=== PATIENT | male | born 1950 | race Caucasian/White ===

== ENCOUNTER 2018-09-12 08:31 | Emergency (ER) | payer MEDICARE, BC, SELFPAY ==
[2018-09-12 08:35] VITALS: BP 146/81; PULSE 74; RESP 18; TEMP 36.5; O2SAT 97
--- NOTE | 2018-09-12 09:00 | W.ED.GENAD ---
Discharge Plan Disposition Patient Disposition: HOME Condition: Stable Discharge Details Chief Complaint: SOB Clinical Impression: Viral URI with cough, Elevated blood pressure reading Primary Care Provider: None,None ED Provider: Giovanny Condon Home Meds and New Rx's Prescriptions: New benzonatate 200 mg capsule 200 mg PO TID PRN (Reason: cough) Qty: 30 RF: 0 Continued Theraflu ExpressMax Cold Day 5-10-325 mg/15 mL Liquid 30 ml PO PRN PRNRF: 0 Prilosec OTC 20 mg Tablet,Delayed Release (Dr/Ec) 20 mg PO PRN PRNRF: 0 Discharge Instructions Instructions: Upper Respiratory Infection (ED), Acute Cough (ED) Additional Instructions: Return to the emergency department for any shortness of breath, chest pain, new or worsening symptoms, or if you have a fever and chills after 1 week of symptoms. Otherwise care management will assist you in establishing a primary care provider for reassessment of your elevated blood pressure along with any continued symptoms Referrals: Primary Care Provider [Outside] Discharge Data Discharge Date/Time-TO BE ENTERED AT DEPARTURE: 09/12/18 12:28 Medical Decision Making Patient presenting to the emergency department for chief complaint of cough. Patient states that this started 2 days ago after being around his brother who has similar symptoms. Patient denies any fever chills, shortness of breath, difficulty breathing, chest pain, nasal congestion, sore throat or other symptoms. Physical exam shows clear lung sounds, dry cough heard during examination with no productive sputum, normal cardiac exam, normal HEENT exam. Patient is mildly hypertensive but has normal pulse, not tachypneic, afebrile with appropriate O2 saturation. Given no other associated symptoms I doubt influenza, doubt pneumonia, doubt meningitis or other systemic illness. Mostly concern for viral etiology of cough and/or environmental irritant. Plan to prescribe patient Tessalon Perles as cough suppressant and have him return for any new or worsening symptoms. Patient states that he does not have a primary care provider so patient placed up on care management list for arrangement of primary care provider for reassessment of blood pressure. After discussion of diagnosis and plan of care patient has no further needs, questions, or concerns and states clear understanding to return to the emergency department for any worsening symptoms. HPI General Mode of arrival: ambulatory. Date/Time Provider Initiated Documentation: 09/12/18 08:41. Limitations to Documentation: no limitations. Information obtained by: patient and RN notes reviewed. History of Present Illness 68 year old M presents to the emergency department with the chief complaint of cough, described as similar to prior episodes, Quality is described as other (denies pain), Patient reports no radiation. Patient started experiencing this day(s) (2) and it has been constant. No relieving factors improve symptom(s), Patient notes no other symptoms.. Patient did receive the following treatments prior to arrival, none Related Data Home Medications Medication Instructions Recorded Confirmed Prilosec OTC 20 mg PO PRN PRN 09/12/18 09/12/18 Theraflu ExpressMax Cold Day 30 ml PO PRN PRN 09/12/18 09/12/18 benzonatate 200 mg PO TID PRN #30 cap 09/12/18 Previous Rx's Medication Instructions Recorded benzonatate 200 mg PO TID PRN #30 cap 09/12/18 Allergies Allergy/AdvReac Type Severity Reaction Status Date / Time No Known Allergies Allergy Unverified 09/12/18 09:28 General Stated Complaint: SOB ROBINA: 3 Review of Systems Constitutional Denies chills, Denies fever(s), Denies lethargy, Denies malaise and Denies poor appetite ENT Denies otalgia, Denies nasal congestion, Denies nasal discharge, Denies sinus pressure, Denies sore throat and Denies throat swelling Cardiovascular Denies chest pain Respiratory Denies change in phlegm color, Denies chest congestion, Reports cough, Denies pain with cough, Denies stridor and Denies wheezing Gastrointestinal Denies abdominal pain, Denies dyspepsia, Denies diarrhea, Denies nausea and Denies vomiting Integumentary/Breasts Denies rash Allergic/Immunologic Denies throat swelling and Denies wheezing [facility] Social History Smoking/Tobacco Use Status: Never Exam Const General: cooperative, comfortable and no acute distress Orientation: alert and awake [facility] Head: normal to inspection, normocephalic and atraumatic Ears: hearing grossly normal bilaterally, TM's normal bilaterally, mastoids normal and unable to visualize TM on the left (Due to cerumen) General nose exam: external nose normal Face and sinus: normal facial exam, sinuses nontender and no erythema Mouth: oral mucosae normal, no drooling, no muffled voice and no trismus Throat: posterior oropharynx normal, tonsils normal and uvula midline Neck Neck: normal visual inspection, full ROM, no lymphadenopathy, no meningeal signs, trachea midline and supple Resp Effort & Inspection: normal respiratory effort, able to speak in complete sentences and cough Quality of cough: dry Auscultation: clear to auscultation bilaterally Cardio Rate: regular rate Rhythm: regular rhythm Heart Sounds: S1 normal, S2 normal, normal S1 and S2, no click, no gallops, no murmurs and no rubs Skin General skin exam: no rashes or lesions noted and dry skin (warm) Neuro General: alert, awake, oriented x3, gait normal and moves all extremities Cognition: normal cognition Speech: speech normal Course Vital Signs Temperature 36.5 C 09/12/18 08:35 Pulse 74 09/12/18 08:35 Respiratory Rate 18 09/12/18 08:35 Blood Pressure 146/81 H 09/12/18 08:35 Pulse Oximetry 97 09/12/18 08:35 Temperature 36.5 C 09/12/18 08:35 Temperature Source Temporal Artery Scan 09/12/18 08:35 Pulse 74 09/12/18 08:35 Respiratory Rate 18 09/12/18 08:35 Respiratory Effort 09/12/18 08:41 Respiratory Depth Normal 09/12/18 08:41 Blood Pressure 146/81 H 09/12/18 08:35 Pulse Oximetry 97 09/12/18 08:35 Oxygen Delivery Method Room Air 09/12/18 08:35 Oxygen Flow Rate 0 09/12/18 08:35 Pain Level 0 09/12/18 08:35
[2018-09-12 09:26] VITALS: PULSE 87; RESP 16; O2SAT 96
--- NOTE | 2018-09-15 07:59 | PDOC.ERCMPRO ---
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 Patient needs to establish care. Referral faxed to [facility] this am.
--- NOTE | 2018-09-15 08:03 | CMPROGNOTE_ITS ---
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 Patient needs to establish care. Referral faxed to [facility] this am.
== END 2018-09-12 12:28 | disposition home or self-care (01) ==
PROVIDERS: Emergency Provider Nurse Practitioner Family
DX: B34.9 Viral infection, unspecified (principal); R05 Cough; R03.0 Elevated blood-pressure reading, without diagnosis of hypertension
CPT/HCPCS: 99283

== ENCOUNTER 2019-04-29 09:54 | Emergency (ER) | payer MEDICARE, BC, SELFPAY ==
[2019-04-29 09:55] VITALS: BP 133/82; PULSE 79; RESP 16; TEMP 36.4; O2SAT 97
--- NOTE | 2019-04-29 10:11 | ED.GENADUL_ITS ---
Discharge Plan Disposition Patient Disposition: HOME Condition: Stable Discharge Details Chief Complaint: Urinary Clinical Impression: Acute UTI Primary Care Provider: Rema Hernandez ED Provider: Will Ledezma Home Meds and New Rx's Prescriptions: New levofloxacin 750 mg tablet 750 mg PO DAILY Qty: 7 RF: 0 Continued Prilosec OTC 20 mg Tablet,Delayed Release (Dr/Ec) 20 mg PO PRN PRNRF: 0 Discharge Instructions Instructions: Urinary Tract Infection in Men (ED) Additional Instructions: if you develop severe pain, fevers, vomit return to the emergency department. Follow up with your primary care provider next month as scheduled, if this continues to be an issue with recurrent uti's you may need to see a urology Medical Decision Making 68 yo male comes in with burning with urination and frequency for a week without fevers, abdominal pain or back pain. No cva tenderness on exam and appears well on exam. Denies being sexually active and no prior hx of uti's. his symptoms do sound consistent with uti, will obtain ua and gc/chlamdyia as well UA is consistent with uti so will start abx. ADvisd f/u with pcp and return precautions given Differential Diagnosis uti, std, prostatitis Lab Data Lab results reviewed: Yes I reviewed the patient's lab results. HPI General Mode of arrival: ambulatory . Date/Time Provider Initiated Documentation: 04/29/19 09:57 . Limitations to Documentation: no limitations . Information obtained by: patient . History of Present Illness 68 year old M presents to the emergency department with the chief complaint of burning with u rination, described as moderate, Patient started experiencing this week(s) (1) and it has been constant. No relieving factors improve symptom(s), No exacerbating factors reported . Patient did receive the following treatments prior to arrival, none Related Data Home Medications Medication Instructions Recorded Confirmed Prilosec OTC 20 mg PO PRN PRN 09/12/18 04/29/19 levofloxacin 750 mg PO DAILY #7 tab 04/29/19 Previous Rx's Medication Instructions Recorded levofloxacin 750 mg PO DAILY #7 tab 04/29/19 Allergies Allergy/AdvReac Type Severity Reaction Status Date / Time No Known Allergies Allergy Unverified 04/29/19 10:00 General Stated Complaint: Urinary ROBINA: 4 Review of Systems Review of Systems All systems reviewed & are unremarkable except as noted in HPI and below Constitutional Denies chills, Denies fever(s) and Denies weakness ENT Denies change in voice Cardiovascular Denies chest pain and Denies dyspnea Respiratory Denies cough and Denies dyspnea Gastrointestinal Denies abdominal pain, Denies nausea and Denies vomiting Musculoskeletal Denies joint swelling Neurologic Denies weakness [facility] Social History Smoking/Tobacco Use Status: Never Drug use: Never Do you feel safe at home: Yes Do you feel safe in your relationship?: Yes Exam Const General: no acute distress Orientation: alert HENMT Head: normal to inspection Ears: external ears normal General nose exam: external nose normal Mouth: moist mucous membranes Eyes General: appearance normal, both eyes and all related structures Neck Neck: normal visual inspection Resp Effort & Inspection: normal respiratory effort and able to speak in complete sentences Cardio Rate: regular rate Skin General skin exam: no rashes or lesions noted Neuro General: alert and oriented x3 Extrem General: normal to inspection Psych Mental Status: mental status grossly normal Course Vital Signs Temperature 36.4 C L 04/29/19 09:55 Pulse 79 04/29/19 09:55 Respiratory Rate 16 04/29/19 09:55 Blood Pressure 133/82 04/29/19 09:55 Pulse Oximetry 97 04/29/19 09:55 Temperature 36.4 C L 04/29/19 09:55 Temperature Source Skin 04/29/19 09:55 Pulse 79 04/29/19 09:55 Respiratory Rate 16 04/29/19 09:55 Respiratory Effort Non-Labored 04/29/19 09:59 Blood Pressure 133/82 04/29/19 09:55 Blood Pressure Position Sitting 04/29/19 09:55 Pulse Oximetry 97 04/29/19 09:55 Pain Level 4 04/29/19 09:55 Lab/Test Results Lab/Test Results: 04/29/19 10:01 Urine - Not Specified Urine Culture - Pending
[2019-04-29 11:29] LABS: Bilirubin Negative (Negative); Blood Large (Negative); Clarity Cloudy (Clear); Glucose 500 mg/dL (Negative); Ketones Negative (Negative); Leukocyte Esterase Moderate (Negative); Nitrite Negative (Negative)
[2019-04-29 11:37] LABS: Bacteria Many HPF (Negative); C & S Indicated? C&S Done As Ordered; Casts Negative LPF (Negative); Crystals Negative HPF (Negative); Epithelial Cells Negative HPF (Negative); Mucus Negative (Negative); RBC Negative (0-2); WBC >50 HPF (0-5)
[2019-04-30 13:21] LABS: Chlamydia Result Negative; GC Result Negative; Specimen Description URINE
== END 2019-04-29 12:00 | disposition home or self-care (01) ==
PROVIDERS: Emergency Provider Emergency Medicine; PCP Nurse Practitioner
DX: N39.0 Urinary tract infection, site not specified (principal)
CPT/HCPCS: 87077; 87491; 87591; 99283; 81003; 81015; 87086; 87186

== ENCOUNTER 2019-06-04 09:29 | Outpatient (REF) | payer MEDICARE, BC, SELFPAY ==
[2019-06-04 19:27] LABS: ALT 17 U/L (16-63); AST 19 U/L (15-37); Albumin 3.8 g/dL (3.4-5.0); Alkaline Phosphatase 128 U/L (46-116); Anion Gap 9.2 mmol/L (3-11); BUN 15 mg/dL (7-18); Bilirubin, Total 0.8 mg/dL (0.2-1.0); CO2 26.8 mmol/L (21.0-32.0); CREATININE 1.12 mg/dL (0.70-1.30); Calculated LDL 153 mg/dL; Chloride 100 mmol/L (98-107); Cholesterol 219 mg/dL (50-200); Glucose 182 mg/dL (70-100); HDL Cholesterol 34 mg/dL (40-60); Potassium 4.6 mmol/L (3.5-5.1); Sodium 136 mmol/L (136-145); Total Protein 7.3 g/dL (6.4-8.2); Triglyceride 164 mg/dL (30-150)
== END 2019-06-04 09:49 ==
LOC: NCHCN 09:29
PROVIDERS: PCP Nurse Practitioner; Visit Provider Nurse Practitioner
DX: Z13.1 Encounter for screening for diabetes mellitus (principal); Z13.6 Encounter for screening for cardiovascular disorders; R69 Illness, unspecified
CPT/HCPCS: 80053; 80061

== ENCOUNTER 2021-10-12 18:50 | Outpatient (REF) | payer MEDICARE, BC, SELFPAY ==
[2021-10-12 14:20] LABS: Hemoglobin A1C 10.7 % (<5.7)
[2021-10-12 14:23] LABS: ALT 31 U/L (16-63); AST 22 U/L (15-37); Albumin 3.9 g/dL (3.4-5.0); Alkaline Phosphatase 156 U/L (46-116); Anion Gap 9.9 mmol/L (3-11); BUN 18 mg/dL (7-18); Bilirubin, Total 0.8 mg/dL (0.2-1.0); CO2 26.1 mmol/L (21.0-32.0); CREATININE 1.4 mg/dL (0.70-1.30); Calcium 9.2 mg/dL (8.5-10.1); Chloride 97 mmol/L (98-107); Glucose 395 mg/dL (74-106); Potassium 4.8 mmol/L (3.5-5.1); Sodium 133 mmol/L (136-145); Total Protein 7.4 g/dL (6.4-8.2)
== END 2021-10-12 18:51 | disposition home or self-care (01) ==
LOC: NCHCN 18:50
PROVIDERS: PCP Nurse Practitioner; Visit Provider Physician Assistant Medical
DX: N39.0 Urinary tract infection, site not specified (principal)
CPT/HCPCS: 80053; 83036; 87086

== ENCOUNTER 2021-10-25 13:45 | Outpatient (REF) | payer MEDICARE, BC, SELFPAY ==
[2021-10-25 14:38] LABS: Bilirubin Negative (Negative); Blood Small (Negative); Clarity Cloudy (Clear); Glucose 100 mg/dL (Negative); Ketones Negative (Negative); Leukocyte Esterase Moderate (Negative); Nitrite Negative (Negative); Urobilinogen 0.2 EU/dL (Up TO 0.2); pH 5.5 (5-8)
[2021-10-25 14:55] LABS: Bacteria Many HPF (Negative); Crystals Negative HPF (Negative); Epithelial Cells Rare HPF (Negative); Other Cells Negative (Negative); WBC >50 HPF (0-5)
[2021-10-25 14:56] LABS: C & S Indicated? C&S Done As Ordered; Casts Negative LPF (Negative); Mucus Heavy (Negative)
[2021-10-25 15:07] LABS: COMMENT (LAB VIEW ONLY) 79.09 mg/dL; Microalb ug/mg Crea 87.6 ug/mg Cr
== END 2021-10-25 13:46 | disposition home or self-care (01) ==
LOC: NCHCN 13:45
PROVIDERS: PCP Nurse Practitioner; Visit Provider Nurse Practitioner Family
DX: N39.0 Urinary tract infection, site not specified (principal); E11.9 Type 2 diabetes mellitus without complications
CPT/HCPCS: 81003; 81015; 82043; 82570; 87086

== ENCOUNTER 2021-11-21 15:04 | Emergency (ER) | payer MEDICARE, BC, SELFPAY ==
[2021-11-21] VITALS (42 sets, daily range): BP systolic 119–147; BP diastolic 54–75; PULSE 71–93; RESP 12–30; TEMP 36.8; O2SAT 90–98
--- NOTE | 2021-11-21 15:00 | RT.EKG_ITS ---
APPROVED REPORT Exam: Resting ECG Reason for Exam: pained breathing Patient Location: E HR:80 bpm ECG Measurements Heart Rate 80 AXIS ME 168 P 54 QRSd 84 QRS 49 QT 338 T 57 QTc 390 Conclusion Sinus rhythm...normal P axis, V-rate 60- 99
--- NOTE | 2021-11-21 15:30 | DI.RAD_ITS ---
Exam(s) XR PORTABLE CHEST AP EXAM: XR PORTABLE CHEST AP CLINICAL HISTORY: chest pain TECHNIQUE: 2D digital imaging was performed of the chest. One image was obtained. An AP view was ob tained. COMPARISON: No exams were available for comparison FINDINGS: MEDIASTINUM: Normal. HEART: Normal. PULMONARY VASCULATURE: Normal. LUNGS: Linear opacities are seen in the lung bases bilaterally. PLEURAL SPACE: No pleural effusion or pneumothorax. BONE:Within normal limits for the patient's age. OTHER FINDINGS:Normal. IMPRESSION: There are bilateral linear opacities present in the bases. This may represent atelectasis, scarring or pneumonia. Please correlate clinically. DATA REPOSITORY: RADIATION DOSE DELIVERED:
[2021-11-21 15:55] LABS: Abs Immature Grans 0.03 10^3/uL (0.0-0.06); Absolute Basophil Count 0.05 10^3/uL (0.0-0.2); Absolute Eosinophil Count 0.13 10^3/uL (0.0-0.7); Absolute Lymphocyte Count 2.06 10^3/uL (1.2-3.4); Absolute Monocyte Count 1.01 10^3/uL (0.1-0.8); Absolute Neutrophil Count 7.25 10^3/uL (1.2-6.7); Basophils % 0.5; Eosinophils % 1.2; HCT 45.4 % (40.0-50.0); HGB 14.9 g/dL (13.5-17.5); Immature Grans % 0.3; Lymphocytes % 19.6; MCH 30.4 pg (27.0-33.0); MCHC 32.8 % (32.0-36.0); MCV 92.7 fL (80-95); MPV 10.8 fL (8.0-11.0); Monocytes % 9.6; Neutrophils % 68.8; Nucleated RBC 0 %; Platelet Count 235 10^3/uL (130-400); RDW 12.4 % (11.8-14.1); RDW-SD 42.7 fL; WBC 10.53 10^3/uL (4.4-10.8)
[2021-11-21] MEDS: Aspirin 81 MG CHEW 324 MG CH (16:00)
[2021-11-21 16:16] LABS: ALT 25 U/L (16-63); AST 16 U/L (15-37); Albumin 3.6 g/dL (3.4-5.0); Alkaline Phosphatase 214 U/L (46-116); Anion Gap 7.8 mmol/L (3-11); BUN 18 mg/dL (7-18); Bilirubin, Total 1.1 mg/dL (0.2-1.0); CO2 27.2 mmol/L (21.0-32.0); CREATININE 1.1 mg/dL (0.70-1.30); Chloride 100 mmol/L (98-107); Glucose 132 mg/dL (74-106); INR 1.1 (0.9-1.1); Magnesium 2.1 mg/dL (1.8-2.4); NT-proBNP 76 pg/mL (<300); PTT Activated 27.8 sec (21.0-27.5); Potassium 4.2 mmol/L (3.5-5.1); Prothrombin Time 10.9 sec (9.3-11.0); Sodium 135 mmol/L (136-145); Total Protein 7.7 g/dL (6.4-8.2); Troponin I < 50 ng/L (<or=60)
--- NOTE | 2021-11-21 16:22 | ED.GENADUL_ITS ---
Discharge Plan Disposition Patient Disposition: HOME Condition: Stable Discharge Details Clinical Impression: Pneumonia, Acute UTI Primary Care Provider: RAVI REECE ED Provider: Johny Pritchard Home Meds and New Rx's Prescriptions: New levofloxacin 750 mg tablet 750 mg PO DAILY Qty: 6 0RF Continued omeprazole magnesium [Prilosec OTC] 20 mg Tablet,Delayed Release (Dr/Ec) 20 mg PO PRN PRN0RF metformin 500 mg tablet 500 mg PO BID 0RF Label Comments: TAKE ONE TABLET BY MOUTH TWICE A DAY Victoza 2-Obi 0.6 mg/0.1 mL (18 mg/3 mL) pen injector 0.6 mg SUBCUT DAILY 0RF Discharge Instructions Instructions: Urinary Tract Infection in Men (ED), Pneumonia (ED) Additional Instructions: It would appear as though you have both pneumonia and a urinary tract infection. Levaquin as directed. Plenty fluids to avoid dehydration. Stsy-psj-vpswbal medications as directed for symptom control. Please watch for new or worsening symptoms return to the ER concerns otherwise please reach out to your primary care provider tomorrow to discuss your ER visit and need for outpatient reevaluation. Discharge Data Discharge Date/Time-TO BE ENTERED AT DEPARTURE: 11/21/21 20:05 Medical Decision Making This is a 71-year-old gentleman, past medical history of GERD, diabetes, non- smoker, fully vaccinated presenting to the ER complaining of left-sided chest that has been present steadily for the past 3 days worse with movement, deep breathing, coughing, lying flat, that radiates to his left shoulder blade. Patient states it feels sharp and jabbing, superficial like it could be a muscle. He also wonders if he could have pneumonia given his cough. He denies other recent illness or trauma. He denies any cardiac or pulmonary disease hist ory. He has not taken any medications for symptoms. Patient also wonders if he could have an acute on chronic UTI as he has mild dysuria. Clinically he appears well, nontoxic, hemodynamically stable. Given his age and complaint, will initiate cardiac work-up including D-dimer to rule out potential PE, extremely low suspicion for dissection, and will obtain a Covid swab. Will give a single full dose of aspirin. Laboratory values reveal no evidence of leukocytosis, anemia, thrombocytopenia. D-dimer slightly elevated at 764, will pursue CTA of the chest sodium 135, electrolytes otherwise unremarkable, creatinine 1.0 with a GFR greater than 60. Magnesium 2.1, troponin less than 50, BNP 76. Urinalysis reveals moderate leuk esterase with greater than 50 white cells. COVID negative CTA negative for dissection or PE but concerning for bilateral lower lobe infiltrates. Patient remains hemodynamically stable. Agreeable to awaiting delta troponin. Given his UTI and pneumonia, will treat with Levaquin, first dose given now. Discussed his age, presentation, comorbidities, and admission but he declines, feels well enough to go home and assures me he will return for new or worsening symptoms. Delta troponin remains less than 50 Patient remains hemodynamically stable. Reports feeling well enough to go home and is requesting discharge. Standard discharge and return precautions were provided. This documentation was generated using [employer] system, please disregard any oddities of phrase or misspellings. Medical Records Medical records reviewed: Yes I reviewed the patient's medical records. Imaging Data Radiologic Study: Attestation: I personally reviewed and interpreted this imaging study as follows: Imaging: CT Scan Radiologist's impression: Exam(s) CT CHEST PE CTA EXAM: CT CHEST PE CTA CLINICAL HISTORY: chest pain/sob/elevated dimer. TECHNIQUE: Imaging Protocol: CT angiography of the chest was performed using pulmonary embolus protocol. Multi planar reconstructions were performed. CONTRAST MATERIAL: Intravenous: Omnipaque 350 Contrast volume: 100 cc COMPARISON: CR XR PORTABLE CHEST AP from 11/21/2021 FINDINGS: CHEST: PULMONARY ARTERIES: There are no intraluminal filling defects to suggest acute pulmonary emboli. LUNGS: There infiltrates bilaterally including patchy infiltrates in both lower lobes and above both hemidiaphragms occluding right middle lobe. Also mild ground-glass haziness. Small left pleural effusion.. MEDIASTINUM: There is no hilar nor mediastinal adenopathy. Visualized thyroid unremarkable. CARDIAC: Heart size is upper normal. There is no pericardial effusion.Caliber of the thoracic aorta is within normal limits. No evidence of aortic dissection. There is no significant shift of the interventricular septum. PARTIALLY VISUALIZED UPPERMOST ABDOMEN: No obvious findings OSSEOUS: No significant osseous lesions.. IMPRESSION: 1. No evidence of acute pulmonary emboli. No evidence of pulmonary infarction.No intrathoracic adenopathy. 2. There is infiltrate in both lower lobes as well as some ground glass pulmonary opacities. Findings are consistent with pneumonitis. Small left pleural effusion also evident. 3. No evidence of aortic dissection Lab Data Lab results reviewed: Yes I reviewed the patient's lab results. Labs: 11/21/21 16:00 Urine - Reflex from Ua Urine Culture - Preliminary Lactobacillus Species Laboratory Tests Range/Units 11/21/21 11/21/21 11/21/21 15:40 15:40 15:40 WBC (4.4-10.8) 10^3/uL 10.53 RBC (4.36-5.78) 10^6/uL 4.90 Hgb (13.5-17.5) g/dL 14.9 Hct (40.0-50.0) % 45.4 MCV (80-95) fL 92.7 MCH (27.0-33.0) pg 30.4 MCHC (32.0-36.0) % 32.8 RDW (11.8-14.1) % 12.4 Plt Count (130-400) 10^3/uL 235 MPV (8.0-11.0) fL 10.8 Immature Gran % 0.3 Neutrophils % 68.8 Lymphocytes % 19.6 Monocytes % 9.6 Eosinophils % 1.2 Basophils % 0.5 Nucleated RBC % % 0 Absolute Neutrophils (1.2-6.7) 10^3/uL 7.25 H Absolute Lymphocytes (1.2-3.4) 10^3/uL 2.06 Absolute Monocytes (0.1-0.8) 10^3/uL 1.01 H Absolute Eosinophils (0.0-0.7) 10^3/uL 0.13 Absolute Basophils (0.0-0.2) 10^3/uL 0.05 PT (9.3-11.0) sec 10.9 INR (0.9-1.1) 1.1 APTT (21.0-27.5) sec 27.8 H D-Dimer (<500) ng/mlFEU 764 H Sodium (136-145) mmol/L 135 L Potassium (3.5-5.1) mmol/L 4.2 Chloride (98-107) mmol/L 100 Carbon Dioxide (21.0-32.0) mmol/L 27.2 Anion Gap (3-11) mmol/L 7.8 BUN (7-18) mg/dL 18 Creatinine (0.70-1.30) mg/dL 1.1 Estimated GFR/1.73 m2 (mL/min/1.73m2) >= 60.00 Glucose (74-106) mg/dL 132 H Calcium (8.5-10.1) mg/dL 9.0 Magnesium (1.8-2.4) mg/dL 2.1 Total Bilirubin (0.2-1.0) mg/dL 1.1 H AST (15-37) U/L 16 ALT (16-63) U/L 25 Alkaline Phosphatase (46-116) U/L 214 H Troponin I (<or=60) ng/L < 50 NT-Pro-B Natriuret Pep (<300) pg/mL 76 Total Protein (6.4-8.2) g/dL 7.7 Albumin (3.4-5.0) g/dL 3.6 Urine Color (Yellow) Urine Clarity (Clear) Urine pH (5-8) Ur Specific Bogard (1.005-1.025) Urine Protein (Negative) mg/dL Urine Ketones (Negative) mg/dL Urine Blood (Negative) Urine Nitrite (Negative) Urine Bilirubin (Negative) Urine Urobilinogen (Up TO 0.2) EU/dL Ur Leukocyte Esterase (Negative) Urine RBC Urine WBC (0-5) HPF Ur Epithelial Cells Urine Crystals Urine Bacteria Urine Mucus Ur Culture Indicated? Urine Glucose (Negative) mg/dL COVID-19 Source SARS-CoV-2 (PCR) (Negative) Range/Units 11/21/21 11/21/21 11/21/21 16:00 16:21 18:35 WBC (4.4-10.8) 10^3/uL RBC (4.36-5.78) 10^6/uL Hgb (13.5-17.5) g/dL Hct (40.0-50.0) % MCV (80-95) fL MCH (27.0-33.0) pg MCHC (32.0-36.0) % RDW (11.8-14.1) % Plt Count (130-400) 10^3/uL MPV (8.0-11.0) fL Immature Gran % Neutrophils % Lymphocytes % Monocytes % Eosinophils % Basophils % Nucleated RBC % % Absolute Neutrophils (1.2-6.7) 10^3/uL Absolute Lymphocytes (1.2-3.4) 10^3/uL Absolute Monocytes (0.1-0.8) 10^3/uL Absolute Eosinophils (0.0-0.7) 10^3/uL Absolute Basophils (0.0-0.2) 10^3/uL PT (9.3-11.0) sec INR (0.9-1.1) APTT (21.0-27.5) sec D-Dimer (<500) ng/mlFEU Sodium (136-145) mmol/L Potassium (3.5-5.1) mmol/L Chloride (98-107) mmol/L Carbon Dioxide (21.0-32.0) mmol/L Anion Gap (3-11) mmol/L BUN (7-18) mg/dL Creatinine (0.70-1.30) mg/dL Estimated GFR/1.73 m2 (mL/min/1.73m2) Glucose (74-106) mg/dL Calcium (8.5-10.1) mg/dL Magnesium (1.8-2.4) mg/dL Total Bilirubin (0.2-1.0) mg/dL AST (15-37) U/L ALT (16-63) U/L Alkaline Phosphatase (46-116) U/L Troponin I (<or=60) ng/L < 50 NT-Pro-B Natriuret Pep (<300) pg/mL Total Protein (6.4-8.2) g/dL Albumin (3.4-5.0) g/dL Urine Color (Yellow) Yellow Urine Clarity (Clear) Cloudy Urine pH (5-8) 5.5 Ur Specific Bogard (1.005-1.025) >= 1.030 H Urine Protein (Negative) mg/dL 30 H Urine Ketones (Negative) mg/dL Negative Urine Blood (Negative) Moderate H Urine Nitrite (Negative) Negative Urine Bilirubin (Negative) Negative Urine Urobilinogen (Up TO 0.2) EU/dL 2.0 H Ur Leukocyte Esterase (Negative) Moderate H Urine RBC Not Applicable Urine WBC (0-5) HPF >50 H Ur Epithelial Cells Not Applicable Urine Crystals Not Applicable Urine Bacteria Not Applicable Urine Mucus Not Applicable Ur Culture Indicated? Yes Urine Glucose (Negative) mg/dL Negative COVID-19 Source Nasal/Nares SARS-CoV-2 (PCR) (Negative) Negative ECG Data Attestation: I personally reviewed and interpreted this ECG (s) as follows: Interpretation: Please see official report by Dr. Cadena. Sinus rhythm, ventricular rate of 80, no STEMI HPI General Mode of arrival: ambulatory . Date/Time Provider Initiated Documentation: 11/21/21 15:28 . Limitations to Documentation: no limitations . Information obtained by: patient . History of Present Illness 71 year old M presents to the emergency department with the chief complaint of L sided chest pain, described as moderate, with intensity rated at 6. Quality is described as aching, and is localized to the chest. Patient reports radiation to back. Patient started experiencing this day(s) (3) and it has been constant. improves with No relieving factors improve symptom(s), Movement worsens symptoms (coughing) . Patient notes no other symptoms.. Patient did receive the following treatments prior to arrival, none Related Data Home Medications Medication Instructions Recorded Confirmed omeprazole magnesium 20 mg 20 mg PO PRN PRN 09/12/18 11/21/21 tablet,delayed release (Prilosec OTC) levofloxacin 750 mg tablet 750 mg PO DAILY #6 tab 11/21/21 liraglutide 0.6 mg/0.1 mL (18 mg/3 0.6 mg SUBCUT DAILY 11/21/21 11/21/21 mL) subcutaneous pen injector (Victoza 2-Obi) metformin 500 mg tablet 500 mg PO BID 11/21/21 11/21/21 Previous Rx's Medication Instructions Recorded levofloxacin 750 mg tablet 750 mg PO DAILY #6 tab 11/21/21 Allergies Allergy/AdvReac Type Severity Reaction Status Date / Time No Known Allergies Allergy Unverified 11/21/21 15:50 General Stated Complaint: Chest Pain ROBINA: 2 Review of Systems Constitutional Constitutional: Denies fatigue, Denies fever(s), Denies headache(s) and Denies weakness Eyes Eyes: Denies change in vision ENT Ears, Nose, Mouth, and Throat: Denies headache(s) and Denies neck pain Cardiovascular Cardiovascular: Reports chest pain and Reports dyspnea (pain takes breath away) Respiratory Respiratory: Reports cough (mild dry) and Reports dyspnea (pain takes breath away) Gastrointestinal Gastrointestinal: Denies abdominal pain, Denies nausea and Denies vomiting Genitourinary Genitourinary: Denies hematuria and Reports dysuria (chronic uti) Musculoskeletal Musculoskeletal: Reports back pain and Denies neck pain Integumentary/Breasts Skin/Breast: Denies rash Neurologic Neurologic: Denies headache(s) and Denies weakness Endocrine Endocrine: Denies fatigue Hematologic/Lymphatic Hematologic/Lymphatic: Denies easy bleeding and Denies easy bruising PFSH All Active Problems (Updated 11/21/21 @ 19:44 by JILLIAN Lara) Pneumonia (Acute) Acute UTI (Acute) Social History Smoking/Tobacco Use Status: Never Smoking risk assessment performed?: Yes Alcohol Intake: former Drug use: Never Substance use type: does not use Do you feel safe at home: Yes Do you feel safe in your relationship?: Yes Exam Const General: cooperative, healthy appearing, comfortable and no acute distress Orientation: alert, awake and oriented x3 HENMT Head: normal to inspection, normocephalic and atraumatic Face and sinus: normal facial exam Mouth: moist mucous membranes Eyes General: appearance normal, both eyes and all related structures Conjunctivae: conjunctivae normal Neck Neck: normal visual inspection, full ROM, trachea midline, supple and nontender Chest Chest: normal inspection of the chest and normal palpation of entire chest wall Resp Effort & Inspection: normal respiratory effort and able to speak in complete sentences Auscultation: diminished lung sounds bilaterally in the lower lung alvarez Cardio Rate: regular rate Rhythm: regular rhythm GI Inspection: normal to inspection Palpation: soft, not firm, no guarding, no pulsatile masses and nontender Back/Spine/Pelvis Back: No back tenderness Skin General skin exam: no rashes or lesions noted Neuro General: patient alert, patient awake, moves all extremities and no focal motor deficits Cognition: normal cognition Speech: speech normal Gait: normal gait Motor: muscle tone normal throughout Sensory Exam: no sensory deficits noted Extrem General: full ROM, capillary refill normal and pedal edema bilaterally pitting and 1+ Psych Appearance: grossly normal Mental Status: mental status grossly normal Course Vital Signs Vital signs: Vital Signs Temperature 36.8 C 11/21/21 15:25 Pulse 77 11/21/21 15:25 Respiratory Rate 14 11/21/21 15:25 Blood Pressure 134/69 11/21/21 15:25 Pulse Oximetry 95 11/21/21 15:25 Temperature 36.8 C 11/21/21 15:25 Temperature Source Oral 11/21/21 15:25 Pulse 77 11/21/21 15:25 Respiratory Rate 14 11/21/21 15:25 Respiratory Effort Non-Labored 11/21/21 15:44 Blood Pressure 134/69 11/21/21 15:25 Blood Pressure Position Sitting 11/21/21 15:25 Pulse Oximetry 95 11/21/21 15:25 Oxygen Delivery Method Room Air 11/21/21 15:25 Oxygen Flow Rate 0 11/21/21 15:25 Pain Level 6 11/21/21 15:25 Lab/Test Results Lab/Test Results: Laboratory Tests Range/Units 11/21/21 15:40 Sodium (136-145) mmol/L 135 L Potassium (3.5-5.1) mmol/L 4.2 Chloride (98-107) mmol/L 100 Carbon Dioxide (21.0-32.0) mmol/L 27.2 Anion Gap (3-11) mmol/L 7.8 BUN (7-18) mg/dL 18 Creatinine (0.70-1.30) mg/dL 1.1 Estimated GFR/1.73 m2 (mL/min/1.73m2) >= 60.00 Glucose (74-106) mg/dL 132 H Calcium (8.5-10.1) mg/dL 9.0 Magnesium (1.8-2.4) mg/dL 2.1 Total Bilirubin (0.2-1.0) mg/dL 1.1 H AST (15-37) U/L 16 ALT (16-63) U/L 25 Alkaline Phosphatase (46-116) U/L 214 H Troponin I (<or=60) ng/L < 50 NT-Pro-B Natriuret Pep (<300) pg/mL 76 Total Protein (6.4-8.2) g/dL 7.7 Albumin (3.4-5.0) g/dL 3.6
[2021-11-21 16:28] LABS: Source Nasal/Nares
[2021-11-21 16:31] LABS: Bilirubin Negative (Negative); Blood Moderate (Negative); Clarity Cloudy (Clear); Glucose Negative (Negative); Ketones Negative (Negative); Leukocyte Esterase Moderate (Negative); Nitrite Negative (Negative); Specific Gravity >= 1.030 (1.005-1.025); pH 5.5 (5-8)
[2021-11-21 16:54] LABS: D-Dimer 764 ng/mlFEU (<500)
--- NOTE | 2021-11-21 17:00 | DI.CT_ITS ---
Exam(s) CT CHEST PE CTA EXAM: CT CHEST PE CTA CLINICAL HISTORY: chest pain/sob/elevated dimer. TECHNIQUE: Imaging Protocol: CT angiography of the chest was performed using pulmonary embolus fritz col. Multi planar reconstructions were performed. CONTRAST MATERIAL: Intravenous: Omnipaque 350 Contrast volume: 100 cc COMPARISON: CR XR PORTABLE CHEST AP from 11/21/2021 FINDINGS: CHEST: PULMONARY ARTERIES: There are no intraluminal filling defects to suggest acute pulmonary emboli. LUNGS: There infiltrates bilaterally including patchy infiltrates in both lower lobes and above both hemidiaphragms occluding right middle lobe. Also mild ground-glass haziness. Small left pleural eff usion.. MEDIASTINUM: There is no hilar nor mediastinal adenopathy. Visualized thyroid unremarkable. CARDIAC: Heart size is upper normal. There is no pericardial effusion.Caliber of the thoracic aorta is within normal limits. No evidence of aortic dissection. There is no significant shift of the inte rventricular septum. PARTIALLY VISUALIZED UPPERMOST ABDOMEN: No obvious findings OSSEOUS: No significant osseous lesions.. IMPRESSION: 1. No evidence of acute pulmonary emboli. No evidence of pulmonary infarction.No intrathoracic adeno ramandeep. 2. There is infiltrate in both lower lobes as well as some ground glass pulmonary opacities. Finding s are consistent with pneumonitis. Small left pleural effusion also evident. 3. No evidence of aortic dissection RADIATION DOSE DELIVERED: 420.57mGy.cm Total DLP DATA REPOSITORY: All CT scans at this facility are submitted to the National Radiology Data Registry (NRDR) Dose Index Registry (DIR) with the [employer] (ACR). RADIATION OPTIMIZATION: All CT scans at this facility use at least one of these dose optimization te chniques: automated exposure control; mA and/or kV adjustment per patient size (includes targeted exa ms where dose is matched to clinical indication); or iterative reconstruction.
[2021-11-21 17:03] LABS: C & S Indicated? Yes; WBC >50 HPF (0-5)
[2021-11-21 17:07] LABS: COVID-19 PCR Negative (Negative)
--- NOTE | 2021-11-21 18:51 | NUR.NOTE ---
Nursing Note:Pt to DI for CT scan, reports no chest pain unless he takes a deep breath or lies flat, cont. to monitor.
[2021-11-21] MEDS: Omnipaque 350 MG/ML 100 ML BTL IJ (19:05)
[2021-11-21 19:07] LABS: Troponin I < 50 ng/L (<or=60)
--- NOTE | 2021-11-21 19:29 | DI.VRAD_ITS ---
PROCEDURE INFORMATION: Exam: CTA Chest With Contrast Exam date and time: 11/21/2021 6:55 PM Age: 71 years old Clinical indication: Pain and abnormal findings; Abnormal diagnostic tests; Elevated d-dimer; Other: Cp, SOB; Patient HX: Chest pain/sob/elevated dimer TECHNIQUE: Imaging protocol: Computed tomographic angiography of the chest with contrast. 3D rendering (Not supervised by radiologist): MIP and/or 3D reconstructed images were created by the technologist. Radiation optimization: All CT scans at this facility use at least one of these dose optimization techniques: automated exposure control; mA and/or kV adjustment per patient size (includes targeted exams where dose is matched to clinical indication); or iterative reconstruction. Contrast material: OMNIPAQUE 350; Contrast volume: 100 ml; Contrast route: INTRAVENOUS (IV); COMPARISON: CR XR PORTABLE CHEST AP 11/21/2021 4:17 PM FINDINGS: Pulmonary arteries: Normal. No pulmonary emboli. Aorta: Unremarkable. No aortic aneurysm. No aortic dissection. 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 The superior mesenteric artery origin is widely patent. Lungs: Moderate peribronchial consolidations are noted in both lower lobes. Scattered areas of ground-glass opacity are present in the lower lobes. Expiratory phase imaging noted. No significant endobronchial mucus. Pleural spaces: Mild left pleural effusion. Trace right pleural effusion. No pneumothorax. Heart: Mild cardiomegaly. No pericardial effusion. No coronary artery calcifications. Lymph nodes: Unremarkable. No enlarged lymph nodes. Bones/joints: Unremarkable. No acute fracture. Soft tissues: Unremarkable. IMPRESSION: 1. Negative for pulmonary embolism. 2. Negative for aortic dissection. 3. Moderate peribronchial consolidations in the lung bases, suspicious for pneumonia. Dictated and Authenticated by: Will Davis MD. Ordering:MARIBEL Mcclain MD
[2021-11-21] MEDS: levoFLOXacin 500 MG, levoFLOXacin 250 MG 750 MG PO (19:56)
== END 2021-11-21 20:05 | disposition home or self-care (01) ==
PROVIDERS: Emergency Provider Physician Assistant; PCP Nurse Practitioner Family
DX: J18.9 Pneumonia, unspecified organism (principal); N39.0 Urinary tract infection, site not specified; B96.89 Other specified bacterial agents as the cause of diseases classified elsewhere; Z20.822 Contact with and (suspected) exposure to COVID-19; R07.1 Chest pain on breathing; R07.9 Chest pain, unspecified; R06.02 Shortness of breath; R79.1 Abnormal coagulation profile
CPT/HCPCS: 36415; 71275; 80053; 87635; 93005; 99284; 99285; 71045; 81003; 81015; 83735; 83880; 84484; 85025; 85379; 85610; 85730; 87086; 93010; J3490

== ENCOUNTER 2021-11-21 15:35 | Outpatient (REF) | payer MEDICARE, BC, SELFPAY | END 2021-11-21 15:36 | disposition home or self-care (01) | LOC: LBN 15:35 | PROVIDERS: PCP Nurse Practitioner Family; Visit Provider Nurse Practitioner Family | DX: N39.0 Urinary tract infection, site not specified (principal) | CPT/HCPCS: 87086 ==

== ENCOUNTER → 2022-01-19 00:39 | Outpatient (CLI) | payer MEDICARE, BC, SELFPAY ==
--- NOTE | 2022-01-19 08:37 | DI.RAD_ITS ---
Exam(s) XR HIP LT COMPLETE AP PELVIS EXAM: XR HIP LT COMPLETE AP PELVIS CLINICAL HISTORY: CHRONIC LT HIP PAIN, M25.552. TECHNIQUE: 2D digital imaging was performed of the left hip. Three views were obtained. AP pelvis and lateral left hip views were obtained. COMPARISON: No exams were available for comparison FINDINGS: BONES: No acute fracture is present. No bony destructive lesion is seen. JOINTS: No dislocation present. There is deformity of the proximal left femur with flattening of the head. There is also deformity of the acetabulum. These likely reflect sequelae of remote injury. S econdary moderate degenerative changes are seen in the left hip. SOFT TISSUE: Normal. 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 DATA REPOSITORY: RADIATION DOSE DELIVERED:
== END ==
PROVIDERS: PCP Nurse Practitioner Family; Visit Provider Nurse Practitioner Family
DX: M25.552 Pain in left hip (principal); M16.12 Unilateral primary osteoarthritis, left hip; M25.852 Other specified joint disorders, left hip
CPT/HCPCS: 73502

== ENCOUNTER → 2022-02-26 07:45 | Outpatient (BNVA) | payer MEDICARE, BC, SELFPAY | PROVIDERS: PCP Nurse Practitioner Family; Referring Provider Nurse Practitioner Family; Visit Provider Physician Assistant Surgical | DX: M16.12 Unilateral primary osteoarthritis, left hip (principal) | CPT/HCPCS: 99214 ==

== ENCOUNTER 2022-04-26 11:44 | Outpatient (REF) | payer MEDICARE, BC, SELFPAY ==
[2022-04-26 15:26] LABS: Abs Immature Grans 0.02 10^3/uL (0.0-0.06); Absolute Basophil Count 0.07 10^3/uL (0.0-0.2); Absolute Eosinophil Count 0.12 10^3/uL (0.0-0.7); Absolute Lymphocyte Count 1.95 10^3/uL (1.2-3.4); Absolute Monocyte Count 0.66 10^3/uL (0.1-0.8); Absolute Neutrophil Count 3.99 10^3/uL (1.2-6.7); Eosinophils % 1.8; HCT 42.5 % (40.0-50.0); Immature Grans % 0.3; Lymphocytes % 28.6; MCH 30.5 pg (27.0-33.0); MCHC 32.9 % (32.0-36.0); MCV 93 fL (80-95); MPV 11.9 fL (8.0-11.0); Monocytes % 9.7; Neutrophils % 58.6; Platelet Count 198 10^3/uL (130-400); RBC 4.59 10^6/uL (4.36-5.78); RDW 13.1 % (11.8-14.1); RDW-SD 44.6 fL; WBC 6.81 10^3/uL (4.4-10.8)
[2022-04-26 15:47] LABS: ALT 21 U/L (16-63); AST 28 U/L (15-37); Albumin 3.7 g/dL (3.4-5.0); Alkaline Phosphatase 143 U/L (46-116); Anion Gap 6.9 mmol/L (3-11); BUN 19 mg/dL (7-18); Bilirubin, Total 0.6 mg/dL (0.2-1.0); CO2 29.1 mmol/L (21.0-32.0); CREATININE 1.1 mg/dL (0.70-1.30); Calcium 8.9 mg/dL (8.5-10.1); Chloride 100 mmol/L (98-107); Estimated GFR 72.22 (mL/min/1.73m2); Glucose 125 mg/dL (74-106); Potassium 4.3 mmol/L (3.5-5.1); Sodium 136 mmol/L (136-145); Total Protein 7.5 g/dL (6.4-8.2)
== END 2022-04-26 11:45 | disposition home or self-care (01) ==
LOC: NCHCN 11:44
PROVIDERS: PCP Nurse Practitioner Family; Visit Provider Nurse Practitioner Family
DX: Z51.81 Encounter for therapeutic drug level monitoring (principal); N39.0 Urinary tract infection, site not specified
CPT/HCPCS: 80053; 87077; 85025; 87086; 87186

== ENCOUNTER 2022-07-06 14:40 | Outpatient (REF) | payer MEDICARE, BC, SELFPAY ==
[2022-07-06 16:55] LABS: Bacteria Many HPF (Negative); Epithelial Cells Rare HPF (Negative); WBC >50 HPF (0-5)
[2022-07-06 16:56] LABS: C & S Indicated? C&S Done As Ordered; Casts Negative LPF (Negative); Crystals Negative HPF (Negative); Mucus Trace (Negative)
== END 2022-07-06 14:41 | disposition home or self-care (01) ==
LOC: LBN 14:40
PROVIDERS: PCP Nurse Practitioner Family; Visit Provider Physician Assistant Medical
DX: R30.0 Dysuria (principal)
CPT/HCPCS: 87077; 81015; 87086; 87186

== ENCOUNTER 2022-07-25 19:18 | Outpatient (REF) | payer MEDICARE, BC, SELFPAY ==
[2022-07-25 15:11] LABS: HCT 43.4 % (40.0-50.0); HGB 14.3 g/dL (13.5-17.5); MCH 30.8 pg (27.0-33.0); MCHC 32.9 % (32.0-36.0); MCV 94 fL (80-95); MPV 12.1 fL (8.0-11.0); Platelet Count 171 10^3/uL (130-400); RBC 4.64 10^6/uL (4.36-5.78); RDW 13.5 % (11.8-14.1); RDW-SD 46.4 fL; WBC 6.67 10^3/uL (4.4-10.8)
[2022-07-25 15:42] LABS: ALT 21 U/L (16-63); AST 21 U/L (15-37); Albumin 3.8 g/dL (3.4-5.0); Alkaline Phosphatase 121 U/L (46-116); Anion Gap 8.9 mmol/L (3-11); BUN 22 mg/dL (7-18); Bilirubin, Total 0.7 mg/dL (0.2-1.0); CO2 28.1 mmol/L (21.0-32.0); Calculated LDL 118 mg/dL (<100); Chloride 103 mmol/L (98-107); Cholesterol 181 mg/dL (<200); Estimated GFR 80.47 (mL/min/1.73m2); Glucose 78 mg/dL (74-106); HDL Cholesterol 44 mg/dL (40-60); Potassium 4.4 mmol/L (3.5-5.1); Sodium 140 mmol/L (136-145); Triglyceride 97 mg/dL (<150)
== END 2022-07-25 19:19 | disposition home or self-care (01) ==
LOC: NCHCN 19:18
PROVIDERS: PCP Nurse Practitioner Family; Visit Provider Nurse Practitioner Family
DX: E11.9 Type 2 diabetes mellitus without complications (principal); E78.5 Hyperlipidemia, unspecified; M25.552 Pain in left hip; Z51.81 Encounter for therapeutic drug level monitoring; Z87.440 Personal history of urinary (tract) infections
CPT/HCPCS: 80053; 80061; 85027

== ENCOUNTER → 2022-08-08 10:43 | Outpatient (BNVA) | payer MEDICARE, BC, SELFPAY | PROVIDERS: PCP Nurse Practitioner Family; Referring Provider Nurse Practitioner Family; Visit Provider Nurse Practitioner Gerontology | DX: R30.0 Dysuria (principal); Z87.440 Personal history of urinary (tract) infections; N40.1 Benign prostatic hyperplasia with lower urinary tract symptoms; N13.8 Other obstructive and reflux uropathy; R33.9 Retention of urine, unspecified; E11.9 Type 2 diabetes mellitus without complications | CPT/HCPCS: 51798; 81003; 99214 ==

== ENCOUNTER → 2022-09-17 08:32 | Outpatient (BNVA) | payer MEDICARE, BC, SELFPAY | PROVIDERS: PCP Nurse Practitioner Family; Referring Provider Nurse Practitioner Family; Visit Provider Student in an Organized Health Care Education/Training Program | DX: M16.12 Unilateral primary osteoarthritis, left hip (principal) | CPT/HCPCS: 99213 ==

== ENCOUNTER → 2022-11-07 11:16 | Outpatient (BNVA) | payer MEDICARE, BC, SELFPAY | PROVIDERS: PCP Nurse Practitioner Family; Referring Provider Nurse Practitioner Family; Visit Provider Nurse Practitioner Gerontology | DX: N40.1 Benign prostatic hyperplasia with lower urinary tract symptoms (principal); N13.8 Other obstructive and reflux uropathy; R33.9 Retention of urine, unspecified; B37.9 Candidiasis, unspecified | CPT/HCPCS: 51798; 81003; 99214 ==

== ENCOUNTER 2022-11-07 11:51 | Outpatient (REF) | payer MEDICARE, BC, SELFPAY | END 2022-11-07 11:52 | disposition home or self-care (01) | LOC: LBN 11:51 | PROVIDERS: PCP Nurse Practitioner Family; Visit Provider Nurse Practitioner Gerontology | DX: N13.8 Other obstructive and reflux uropathy (principal); N40.1 Benign prostatic hyperplasia with lower urinary tract symptoms | CPT/HCPCS: 87077; 87086; 87186 ==

== ENCOUNTER → 2023-02-13 13:10 | Outpatient (BNVA) | payer MEDICARE, BC, SELFPAY | PROVIDERS: PCP Nurse Practitioner Family; Referring Provider Nurse Practitioner Family; Visit Provider Nurse Practitioner Gerontology | DX: R33.9 Retention of urine, unspecified (principal); R41.0 Disorientation, unspecified; Z87.440 Personal history of urinary (tract) infections; R30.0 Dysuria; N40.1 Benign prostatic hyperplasia with lower urinary tract symptoms; N13.8 Other obstructive and reflux uropathy | CPT/HCPCS: 51798; 81003; 99214 ==

== ENCOUNTER 2023-02-13 15:13 | Outpatient (REF) | payer MEDICARE, BC, SELFPAY | END 2023-02-13 15:14 | disposition home or self-care (01) | LOC: LBN 15:13 | PROVIDERS: PCP Nurse Practitioner Family; Visit Provider Nurse Practitioner Gerontology | DX: R31.9 Hematuria, unspecified (principal) | CPT/HCPCS: 87077; 87086; 87186 ==

== ENCOUNTER 2023-02-25 15:59 | Outpatient (CLI) | payer MEDICARE, BC, SELFPAY ==
[2023-02-25 10:33] LABS: Abs Immature Grans 0.02 10^3/uL (0.0-0.06); Absolute Basophil Count 0.06 10^3/uL (0.0-0.2); Absolute Eosinophil Count 0.22 10^3/uL (0.0-0.7); Absolute Lymphocyte Count 2.24 10^3/uL (1.2-3.4); Absolute Neutrophil Count 3.59 10^3/uL (1.2-6.7); Basophils % 0.9; Eosinophils % 3.2; HCT 43.1 % (40.0-50.0); HGB 14.3 g/dL (13.5-17.5); Immature Grans % 0.3; Lymphocytes % 32.8; MCHC 33.2 % (32.0-36.0); MCV 93 fL (80-95); MPV 10.9 fL (8.0-11.0); Monocytes % 10.2; Neutrophils % 52.6; Platelet Count 163 10^3/uL (130-400); RBC 4.62 10^6/uL (4.36-5.78); RDW 13.3 % (11.8-14.1); RDW-SD 45.7 fL; WBC 6.83 10^3/uL (4.4-10.8)
[2023-02-25 10:36] LABS: ESR 6 mm/hr (0-20)
[2023-02-25 11:02] LABS: C-Reactive Protein 0.23 mg/dL (0.0-0.3); Glucose 103 mg/dL (74-106)
[2023-02-25 11:13] LABS: Hemoglobin A1C 5.6 % (<5.7)
== END 2023-02-25 16:00 | disposition home or self-care (01) ==
LOC: LBO 16:01
PROVIDERS: Visit Provider Optometrist
DX: E11.3293 Type 2 diabetes mellitus with mild nonproliferative diabetic retinopathy without macular edema, bilateral (principal); H46.02 Optic papillitis, left eye
CPT/HCPCS: 36415; 82947; 85652; 83036; 85025; 86140

== ENCOUNTER → 2023-03-13 07:45 | Outpatient (BNVA) | payer MEDICARE, BC, SELFPAY | PROVIDERS: Visit Provider Nurse Practitioner Gerontology | DX: E11.9 Type 2 diabetes mellitus without complications (principal); N40.1 Benign prostatic hyperplasia with lower urinary tract symptoms; R30.0 Dysuria; R31.9 Hematuria, unspecified; Z87.440 Personal history of urinary (tract) infections | CPT/HCPCS: 51798; 81003; 99213 ==

== ENCOUNTER → 2023-05-14 10:10 | Outpatient (BNVA) | payer MEDICARE, BC, SELFPAY | PROVIDERS: Visit Provider Urology | DX: E11.9 Type 2 diabetes mellitus without complications (principal); N40.1 Benign prostatic hyperplasia with lower urinary tract symptoms; Z87.440 Personal history of urinary (tract) infections; R33.9 Retention of urine, unspecified | CPT/HCPCS: 36415; 51798; 81003; 99213; 84153 ==

== ENCOUNTER 2023-05-14 17:48 | Outpatient (CLI) | payer MEDICARE, BC, SELFPAY ==
[2023-05-15 09:56] LABS: PSA, Diagnostic 1.5 ng/mL (<=6.5)
== END 2023-05-14 17:49 | disposition home or self-care (01) ==
LOC: LBO 17:50
PROVIDERS: Visit Provider Urology
DX: N13.8 Other obstructive and reflux uropathy (principal); N40.1 Benign prostatic hyperplasia with lower urinary tract symptoms
CPT/HCPCS: 36415; 84153

== ENCOUNTER 2023-09-09 19:17 | Outpatient (REF) | payer MEDICARE, BC, SELFPAY | END 2023-09-09 19:18 | disposition home or self-care (01) | LOC: LBN 19:17 | PROVIDERS: Visit Provider Nurse Practitioner Family | DX: N30.01 Acute cystitis with hematuria (principal) | CPT/HCPCS: 87077; 87086; 87186 ==

== ENCOUNTER 2023-11-05 04:37 | Outpatient (CLI) | payer MEDICARE, BC, SELFPAY ==
[2023-11-05 11:14] LABS: ALT 16 U/L (16-63); AST 17 U/L (15-37); Albumin 3.6 g/dL (3.4-5.0); Alkaline Phosphatase 105 U/L (46-116); Anion Gap 11.4 mmol/L (3-11); BUN 19 mg/dL (7-18); Bilirubin, Total 0.8 mg/dL (0.2-1.0); CO2 25.6 mmol/L (21.0-32.0); CREATININE 1.1 mg/dL (0.70-1.30); Calcium 8.6 mg/dL (8.5-10.1); Calculated LDL 115 mg/dL (<100); Chloride 101 mmol/L (98-107); Cholesterol 170 mg/dL (<200); Estimated GFR 71.32 (mL/min/1.73m2); Glucose 105 mg/dL (74-106); HDL Cholesterol 35 mg/dL (40-60); Potassium 4.3 mmol/L (3.5-5.1); Sodium 138 mmol/L (136-145); Total Protein 7.2 g/dL (6.4-8.2); Triglyceride 103 mg/dL (<150)
[2023-11-05 13:49] LABS: Hemoglobin A1C 6.1 % (<5.7)
== END 2023-11-05 04:38 | disposition home or self-care (01) ==
LOC: LBO 04:37
PROVIDERS: Nurse Practitioner Family; Visit Provider Urology
DX: R33.9 Retention of urine, unspecified (principal); N40.1 Benign prostatic hyperplasia with lower urinary tract symptoms; N13.8 Other obstructive and reflux uropathy; E11.9 Type 2 diabetes mellitus without complications; E78.5 Hyperlipidemia, unspecified
CPT/HCPCS: 36415; 80048; 80053; 80061; 83036; 84153

== ENCOUNTER 2023-11-05 20:46 | Outpatient (REF) | payer MEDICARE, BC, SELFPAY ==
[2023-11-05 21:46] LABS: Bilirubin Negative (Negative); Blood Trace-intact (Negative); Clarity Cloudy (Clear); Glucose Negative (Negative); Ketones Negative (Negative); Leukocyte Esterase Large (Negative); Nitrite Positive (Negative); Urobilinogen 0.2 mg/dL (Up to 0.2)
[2023-11-05 23:04] LABS: C & S Indicated? Yes; WBC >50 HPF (0-5)
== END 2023-11-05 20:47 | disposition home or self-care (01) ==
LOC: LBN 20:46
PROVIDERS: Visit Provider Nurse Practitioner Family
DX: R82.998 Other abnormal findings in urine (principal)
CPT/HCPCS: 87077; 81003; 81015; 87086; 87186

== ENCOUNTER → 2023-11-12 09:05 | Outpatient (BNVA) | payer MEDICARE, BC, SELFPAY | PROVIDERS: Visit Provider Urology | DX: R33.8 Other retention of urine (principal); N39.0 Urinary tract infection, site not specified; N40.1 Benign prostatic hyperplasia with lower urinary tract symptoms; R30.0 Dysuria; N13.8 Other obstructive and reflux uropathy; R31.9 Hematuria, unspecified | CPT/HCPCS: 76775 ==

== ENCOUNTER → 2023-12-02 04:36 | Outpatient (CLI) | payer MEDICARE, BC, SELFPAY ==
--- NOTE | 2023-12-02 | DI.US_ITS ---
APPROVED REPORT EXAM: Comprehensive 2D, Doppler, and color-flow Echocardiogram Patient Location: Out-Patient Information Operator: Liza Granados RDCS (AE) Indications: New systolic heart murmur, Fatigue Other Information Study Quality: Adequate Conclusion Normal left ventricular wall thickness and chamber size. EF is 55-60%. Wall motion is normal Normal right ventricular size and function Both atria are normal in size Mildly sclerotic trileaflet aortic valve, no stenosis or regurgitation Estimated right ventricular systolic pressure is 27 mmHg Wall motion Left Ventricle The left ventricle is normal size. The left ventricular systolic function is normal. The left ventric ular ejection fraction is within the normal range. There is normal left ventricular wall thickness. T here is normal LV segmental wall motion. There is no ventricular septal defect visualized. LVEF is 56 %. Right Ventricle The right ventricle is normal size. The right ventricular systolic function is normal. Atria The left atrium size is normal. The right atrium size is normal. The interatrial septum is intact wit h no evidence for an atrial septal defect. Aortic Valve The Aortic valve is mildly sclerotic. Aortic valve is trileaflet. There is no aortic valvular stenosi s. No aortic regurgitation is present. Mitral Valve Mild mitral annular calcification. No evidence of mitral valve stenosis. Trace mitral regurgitation. Tricuspid Valve The tricuspid valve is normal in structure. There is no tricuspid valve stenosis. Mild tricuspid regu rgitation. The RVSP is 27.3_ mmHg. Pulmonic Valve The pulmonary valve is normal in structure. There is no pulmonic valvular stenosis. Trace pulmonic re gurgitation. Great Vessels The aortic root is normal in size. The ascending aorta is normal in size. Aortic arch is normal in ca liber. IVC is normal in size and collapses >50% with inspiration. Pericardium There is no pericardial effusion. 2D Dimensions IVSD d PLAX 1.00 cm M: 0.6-1.2 Ao Root d 3.30 cm M: 3.1 - 3.7 LVPW d PLAX 1.02 cm M: 0.6 - 1.2 Ao Asc Diam d 3.34 cm M: 2.6 - 3.4 LVID d PLAX 4.88 cm M: 4.2 - 5.8 LVDs 3.31 cm M: 2.5 - 4.0 LV EF Teichholz 60.2 % FS 32.17 % LV EDV (Teich) 111.9 mL LV ESV (Teich) 44.5 mL M-Mode TAPSE 3.03 cm (M/F) >1.7 Auto EF LV EDV A4C 121.6 mL LV EDV A2C 139.0 mL LV EDV BP 130.0 mL LV ESV A4C 53.7 mL LV ESV A2C 61.0 mL LV ESV BP 57.0 mL LVEF(%) A4C 55.9 % LVEF(%) A2C 56.1 % LVEF(%) BP 56.1 % LV SV A4C 68.0 ml LV SV A2C 78.1 ml LV SV BP 73.0 ml LV CO A4C 3.7 L/min LV CO A2C 3.6 L/min LV CO BP 3.6 L/min HR A4C 54.22 BPM HR A2C 45.86 BPM LV EDV Index (BP) LA Volume LA Length A4C 4.8 cm LA Length A2C 4.7 cm LA Area A4C s 16.80 cm2 LA Area A2C s 15.98 cm2 LA Vol A4C A-L 50.23 mL LA Vol A2C A-L 45.68 mL LA Vol Biplane A-L 48.0 mL LA Vol/BSA A4C A-L LA Vol/BSA A2C A-L LA Vol/BSA BP A-L 25.2 mL/m2 LA Vol A4C MOD 48.3 mL LA Vol A2C MOD 41.9 mL LA Vol BP MOD 44.9 mL RA Volume RA Area A4C 10.7 cm2 RA ESV A4C (A-L) 20.8mL RA Vol/BSA A4C A-L RA Length A4C 4.7 cm RA ESV A4C (MOD) 20.2mL LV Diastology MV E' medial 0.067 (>0.07 m/s) MV E Vmax 0.96 (0.4-1.3 m/s) MV E/E' MED 14.32 (<14) MV A Vmax 0.85 (0.4-1.3 m/s) MV E' lateral 0.082 (>0.1 m/s) E/A Ratio 1.1 MV E/E' LAT 11.67 (<14) MV E' Average 0.075 m/s MV E/E'(average) 12.86 Aortic Valve AoV Vmax 1.67 m/s LVOT Vmax 0.74 m/s AoV Peak Grad 11.1 mmHg LVOT Peak Grad 2.2 mmHg AoV Area (Vmax) 1.49 cm2 LVOT VTI 0.189 m AoV VTI 0.424 m LVOT Mean Grad 1.1 mmHg AoV Mean Ronny. 1.17 m/s LVOT SV 63.35 mL AoV Mean Grad 6.4 mmHg LVOT Diam s 2.05 cm AoV Area (VTI) 1.49 cm2 Velocity Ratio 0.44 Mitral Valve MV DT 126 (160-240 msec) MV Vmax TIPS 1.00 m/s MV Mean Grad 1.1 (<2mmHg) MV VTI 0.405 m Pulmonary Valve PV Vmax 0.98 (0.5-1.5 m/s) RVOT Vmax 0.62 m/s PV Peak Grad 3.9 mmHg RVOT Peak Gr. 1.5 mmHg PV Mean Ronny 0.65 m/s RVOT VTI 0.158 m PV Mean Grad 1.9 mmHg RVOT Mean Gr. 0.9 mmHg Tricuspid Valve RA Pressure 3.00 mmHg TR Vmax 2.46 m/s TV S' 0.11 m/s TR Peak Grad 24.2 mmHg RVSP (TR) 27.3 mmHg
== END ==
PROVIDERS: PCP Nurse Practitioner Family; Visit Provider Nurse Practitioner Family
DX: R01.1 Cardiac murmur, unspecified (principal)
CPT/HCPCS: 93306

== ENCOUNTER 2023-12-03 03:55 | Outpatient (CLI) | payer MEDICARE, BC, SELFPAY ==
[2023-12-03 10:25] LABS: Anion Gap 5.7 mmol/L (3-11); BUN 20 mg/dL (7-18); CO2 29.3 mmol/L (21.0-32.0); CREATININE 1.2 mg/dL (0.70-1.30); Calcium 9.1 mg/dL (8.5-10.1); Chloride 100 mmol/L (98-107); Estimated GFR 64.25 (mL/min/1.73m2); Glucose 121 mg/dL (74-106); Potassium 4.2 mmol/L (3.5-5.1); Sodium 135 mmol/L (136-145)
[2023-12-03 10:35] LABS: Bilirubin Negative (Negative); Blood Negative (Negative); Clarity Clear (Clear); Glucose Negative (Negative); Ketones Negative (Negative); Leukocyte Esterase Negative (Negative); Nitrite Negative (Negative); Specific Gravity <= 1.005 (1.005-1.025); Urobilinogen 0.2 mg/dL (Up to 0.2); pH 5.5 (5-8)
== END 2023-12-03 03:56 | disposition home or self-care (01) ==
LOC: LBO 03:55
PROVIDERS: PCP Nurse Practitioner Family; Visit Provider Urology
DX: N40.1 Benign prostatic hyperplasia with lower urinary tract symptoms (principal); N13.8 Other obstructive and reflux uropathy; E11.9 Type 2 diabetes mellitus without complications
CPT/HCPCS: 36415; 80048; 81003

== ENCOUNTER → 2023-12-05 09:18 | Outpatient (BNVA) | payer MEDICARE, BC, SELFPAY | PROVIDERS: PCP Nurse Practitioner Family; Visit Provider Podiatrist | DX: L60.3 Nail dystrophy (principal); E11.9 Type 2 diabetes mellitus without complications; M79.673 Pain in unspecified foot; I70.203 Unspecified atherosclerosis of native arteries of extremities, bilateral legs; B35.1 Tinea unguium | CPT/HCPCS: 11721 ==

== ENCOUNTER → 2024-01-02 14:10 | Outpatient (BNVA) | payer MEDICARE, BC, SELFPAY | PROVIDERS: PCP Nurse Practitioner Family; Referring Provider Nurse Practitioner Family; Visit Provider Urology | DX: R33.8 Other retention of urine (principal); Z87.440 Personal history of urinary (tract) infections | CPT/HCPCS: 99213 ==

== ENCOUNTER → 2024-01-17 08:44 | Outpatient (BNVA) | payer MEDICARE, BC, SELFPAY | PROVIDERS: PCP Nurse Practitioner Family; Referring Provider Podiatrist; Visit Provider Physical Therapy Assistant | DX: I70.203 Unspecified atherosclerosis of native arteries of extremities, bilateral legs (principal) | CPT/HCPCS: 93922 ==

== ENCOUNTER 2024-04-22 09:56 | Outpatient (CLI) | payer MEDICARE, BC, SELFPAY ==
--- NOTE | 2024-04-22 | DI.RAD_ITS ---
Exam(s) XR CHEST 2V PA LATERAL EXAM: XR CHEST 2V PA LATERAL CLINICAL HISTORY: COUGH, R05.9 TECHNIQUE: 2D digital imaging was performed of the chest. Two images were obtained. PA and lateral views were obtained. COMPARISON: CR XR PORTABLE CHEST AP from 11/21/2021 FINDINGS: MEDIASTINUM: Normal. HEART: Normal. PULMONARY VASCULATURE: Normal. LUNGS: There is an opacity in the lateral aspect of the right mid lung. It appears to lie in the sup erior segment of the right lower lobe. The findings are suggestive of a pneumonia. PLEURAL SPACE: No pleural effusion or pneumothorax. BONE:Within normal limits for the patient's age. OTHER FINDINGS:Normal. IMPRESSION: Opacity which appears to lie in the superior segment of the right lower lobe concerning for pneumonia . A follow-up chest x-ray is recommended to document complete resolution. DATA REPOSITORY: RADIATION DOSE DELIVERED:
== END 2024-04-22 10:16 ==
LOC: DI 09:56
PROVIDERS: PCP Nurse Practitioner Family; Visit Provider Physician Assistant Medical
DX: R05.9 Cough, unspecified (principal); R91.8 Other nonspecific abnormal finding of lung field
CPT/HCPCS: 71046

== ENCOUNTER 2024-05-19 01:51 | Outpatient (CLI) | payer MEDICARE, BC, SELFPAY ==
--- NOTE | 2024-05-19 09:08 | DI.RAD_ITS ---
Exam(s) XR CHEST 2V PA LATERAL EXAM: XR CHEST 2V PA LATERAL CLINICAL HISTORY: F/U PNEUMONIA,J18.9 TECHNIQUE: 2D digital imaging was performed. Two views. COMPARISON: CR XR CHEST 2V PA LATERAL from 04/22/2024 FINDINGS: HEART: Normal size. Aorta: Not dilated. PULMONARY VASCULATURE: Normal. MEDIASTINUM: Unremarkable. LUNGS: Clear. Interval clearing of previously noted right sided pneumonia. No new abnormalities. PLEURAL SPACE: No pleural effusion or pneumothorax. BONE:Unremarkable for age. SOFT TISSUES: Unremarkable. IMPRESSION: No acute abnormality. Interval clearing of right-sided pneumonia. DATA REPOSITORY: RADIATION DOSE DELIVERED:
== END 2024-05-19 02:11 ==
LOC: DI 01:52
PROVIDERS: PCP Nurse Practitioner Family; Visit Provider Nurse Practitioner Family
DX: J18.9 Pneumonia, unspecified organism (principal)
CPT/HCPCS: 71046

== ENCOUNTER → 2024-06-03 09:27 | Outpatient (BNVA) | payer MEDICARE, BC, SELFPAY | PROVIDERS: PCP Nurse Practitioner Family; Referring Provider Nurse Practitioner Family; Visit Provider Podiatrist | DX: L60.3 Nail dystrophy (principal); E11.9 Type 2 diabetes mellitus without complications; M79.674 Pain in right toe(s); M79.675 Pain in left toe(s); I70.203 Unspecified atherosclerosis of native arteries of extremities, bilateral legs; B35.1 Tinea unguium; I73.89 Other specified peripheral vascular diseases; R20.8 Other disturbances of skin sensation; R60.0 Localized edema | CPT/HCPCS: 11721 ==

== ENCOUNTER → 2024-06-30 14:21 | Outpatient (BNVA) | payer MEDICARE, BC, SELFPAY | PROVIDERS: PCP Nurse Practitioner Family; Visit Provider Urology | DX: R30.0 Dysuria (principal); R33.8 Other retention of urine; Z87.440 Personal history of urinary (tract) infections | CPT/HCPCS: 51798; 81003; 99213 ==

== ENCOUNTER 2024-06-30 17:47 | Outpatient (REF) | payer MEDICARE, BC, SELFPAY ==
--- OUTSIDE RECORDS SUMMARY | 2024-06-30 17:50 | XMS_ITS | Encounter Summary ---
Author Organization [facility] Address [address] [place] [address] Care Team Providers Care Cassandra Developer Name Role Phone Unavailable Primary Care Provider Unavailabl e Encounter Details Date Type Department Care Team (Late st Contact Info) Description 11/05/2023 Lab Requisition [facility] Pathology & Laboratory Medicine - [facility] [address] [place] [address] Outr Resulting Lab, Provider Social History Tobacco Use Types Packs/Day Years Used Date Smoking Tobacco: Never Assessed Sex and Gender Information Value Date Recorded Sex Assigned at Not on file Legal Sex Male 16:07 EDT Gender Identity Not on file Sexual Orientation Not on file documented as of this encounter Plan of Treatment Not on file documented as of this encounter Procedures Procedure Name Priority Date/Time Associated Diagnosis Comments PSA TOTAL, DIAGNOSTIC Routine 11/05/2023 9:59 EDT documented in this encounter Results * PSA TOTAL, DIAGNOSTIC (11/05/2023 9:59 EDT) PSA 2.0 <=6.5 ng/mL 11/05/2023 18:07 EDT [facility] Blood VENOUS BLOOD / Unknown 11/05/2023 9:59 EDT 11/05/2023 16:31 EDT Narrative [facility] - 11/05/2023 18:07 EDT NOTE: Serum PSA concentration should not be interpreted as absolute evidence for the presence or absence of malignant disease. Assayed on Siemens ADVIA Centaur XPT using chemiluminescent technology.??Values obtained by using different assay methods cannot be used interchangeably. us Provider Outr Resulting Lab CHEMISTRY & BLOOD GA S ORDERABLES Final Result [facility] [address] [place] [address] documented in this encounter Visit Diagnoses Not on filedocumented in this encounter
--- OUTSIDE RECORDS SUMMARY | 2024-06-30 17:50 | XMS_ITS | Referral Summary ---
Author Organization [facility] Address [address] [place] [address] Care Team Providers Care Garnishment Specialist Name Role Phone Unavailable Primary Care Provider Unavailabl e Social History Tobacco Use Types Packs/Day Years Used Date Smoking Tobacco: Never Assessed Sex and Gender Information Value Date Recorded Sex Assigned at Not on file Legal Sex Male 16:07 EDT Gender Identity Not on file Sexual Orientation Not on file Plan of Treatment Not on file
--- OUTSIDE RECORDS SUMMARY | 2024-06-30 17:50 | XMS_ITS | Encounter Summary ---
Author Organization [facility] Address [address] [place] [address] Care Team Providers Care Scrap Drop Operator Name Role Phone Unavailable Primary Care Provider Unavailabl e Encounter Details Date Type Department Care Team (Late st Contact Info) Description 05/14/2023 Lab Requisition [facility] Pathology & Laboratory Medicine - [address] [id number] Outr Resulting Lab, Provider Social History Tobacco [...] Associated Diagnosis Comments PSA TOTAL, DIAGNOSTIC Routine 05/14/2023 11:03 EDT documented in this encounter Results * PSA TOTAL, DIAGNOSTIC (05/14/2023 11:03 EDT) PSA 1.5 <=6.5 ng/mL 05/15/2023 9:51 EDT [facility] Blood VENOUS BLOOD / Unknown 05/14/2023 11:03 EDT 05/14/2023 21:42 EDT Narrative [facility] - 05/15/2023 9:51 EDT NOTE: Serum PSA concentration should not be interpreted as absolute evidence for the presence or absence of malignant disease. Assayed on Siemens ADVIA Centaur XPT using chemiluminescent technology.??Values obtained by using different assay methods cannot be used interchangeably. us Provider Outr Resulting Lab CHEMISTRY & BLOOD GA S ORDERABLES Final Result [facility] [address] [place] [address] documented in this encounter Visit Diagnoses Not on filedocumented in this encounter
--- OUTSIDE RECORDS SUMMARY | 2024-06-30 17:50 | XMS_ITS | Clinical Summary ---
Author Organization [facility] Address [address] [place] [address] Care Team Providers Care Bodily Injury Adjuster Name Role Phone Unavailable Primary Care Provider Unavailabl e Social History Tobacco Use Types Packs/Day Years Used Date Smoking Tobacco: Never Assessed Sex and Gender Information Value Date Recorded Sex Assigned at Not on file Legal Sex Male 16:07 EDT Gender Identity Not on file Sexual Orientation Not on file Plan of Treatment Health Maintenance Due Date Last Done Comments Hepatitis C Screen 1950 RSV Immunization ( o r 60+ Years) (1 - 1-dose 60+ series) 2011 Fall Risk Screening 2016 COVID-19 Vaccine (2022- season) 2023
== END 2024-06-30 17:48 | disposition home or self-care (01) ==
LOC: LBN 17:47
PROVIDERS: PCP Nurse Practitioner Family; Visit Provider Urology
DX: R30.0 Dysuria (principal)
CPT/HCPCS: 87077; 87086; 87186

== ENCOUNTER 2024-07-13 16:06 | Outpatient (REF) | payer MEDICARE, BC, SELFPAY ==
[2024-07-13 20:02] LABS: Bilirubin Negative (Negative); Blood Negative (Negative); Clarity Clear (Clear); Glucose Negative (Negative); Ketones Negative (Negative); Leukocyte Esterase Negative (Negative); Nitrite Negative (Negative); Urobilinogen 0.2 mg/dL (Up to 0.2); pH 5.5 (5-8)
== END 2024-07-13 16:07 | disposition home or self-care (01) ==
LOC: LBN 16:06
PROVIDERS: PCP Nurse Practitioner Family; Visit Provider Urology
DX: N40.1 Benign prostatic hyperplasia with lower urinary tract symptoms (principal); N13.8 Other obstructive and reflux uropathy; R33.9 Retention of urine, unspecified
CPT/HCPCS: 81003; 87086

== ENCOUNTER 2024-09-22 15:18 | Outpatient (REF) | payer MEDICARE, BC, SELFPAY | END 2024-09-22 15:19 | disposition home or self-care (01) | LOC: LBN 15:18 | PROVIDERS: PCP Nurse Practitioner Family; Visit Provider Urology | DX: R30.0 Dysuria (principal); N13.8 Other obstructive and reflux uropathy; Z87.440 Personal history of urinary (tract) infections; R33.9 Retention of urine, unspecified; N40.1 Benign prostatic hyperplasia with lower urinary tract symptoms | CPT/HCPCS: 87077; 87086 ==

== ENCOUNTER → 2024-12-02 09:09 | Outpatient (BNVA) | payer MEDICARE, BC, SELFPAY | PROVIDERS: PCP Nurse Practitioner Family; Referring Provider Nurse Practitioner Family; Visit Provider Podiatrist | DX: L60.3 Nail dystrophy (principal); B35.1 Tinea unguium; E11.9 Type 2 diabetes mellitus without complications; I70.203 Unspecified atherosclerosis of native arteries of extremities, bilateral legs; M79.674 Pain in right toe(s); M79.675 Pain in left toe(s); L65.9 Nonscarring hair loss, unspecified; R20.8 Other disturbances of skin sensation; R23.8 Other skin changes; L60.8 Other nail disorders; R60.0 Localized edema; L60.2 Onychogryphosis; L85.8 Other specified epidermal thickening | CPT/HCPCS: 11056; 11721 ==

== ENCOUNTER → 2025-01-15 13:50 | Outpatient (BNVA) | payer MEDICARE, BC, SELFPAY | PROVIDERS: PCP Nurse Practitioner Family; Referring Provider Nurse Practitioner Family; Visit Provider Urology | DX: Z87.440 Personal history of urinary (tract) infections (principal); N40.1 Benign prostatic hyperplasia with lower urinary tract symptoms; N13.8 Other obstructive and reflux uropathy; R39.9 Unspecified symptoms and signs involving the genitourinary system | CPT/HCPCS: 99214; 81003; 51798 ==

== ENCOUNTER → 2025-04-23 14:16 | Outpatient (BNVA) | payer MEDICARE, BC, SELFPAY | PROVIDERS: PCP Nurse Practitioner Family; Referring Provider Nurse Practitioner Family; Visit Provider Urology | DX: N40.1 Benign prostatic hyperplasia with lower urinary tract symptoms (principal); N13.8 Other obstructive and reflux uropathy; R33.9 Retention of urine, unspecified; Z87.440 Personal history of urinary (tract) infections | CPT/HCPCS: 99214; 51798; 81002 ==

== ENCOUNTER 2025-04-23 15:47 | Outpatient (REF) | payer MEDICARE, BC, SELFPAY | END 2025-04-23 15:48 | disposition home or self-care (01) | LOC: LBN 15:47 | PROVIDERS: PCP Nurse Practitioner Family; Visit Provider Urology | DX: N40.1 Benign prostatic hyperplasia with lower urinary tract symptoms (principal); N13.8 Other obstructive and reflux uropathy; Z87.440 Personal history of urinary (tract) infections | CPT/HCPCS: 87077; 87086; 87186 ==

== ENCOUNTER → 2025-05-03 10:46 | Outpatient (BNVA) | payer MEDICARE, BC, SELFPAY | PROVIDERS: PCP Nurse Practitioner Family; Referring Provider Nurse Practitioner Family; Visit Provider Podiatrist | DX: L60.3 Nail dystrophy (principal); B35.1 Tinea unguium; I70.203 Unspecified atherosclerosis of native arteries of extremities, bilateral legs; E11.9 Type 2 diabetes mellitus without complications; I73.89 Other specified peripheral vascular diseases; R09.89 Other specified symptoms and signs involving the circulatory and respiratory systems; L60.2 Onychogryphosis; L60.8 Other nail disorders; M79.674 Pain in right toe(s); M79.675 Pain in left toe(s) | CPT/HCPCS: 11721 ==

== ENCOUNTER 2025-05-04 14:56 | Outpatient (REF) | payer MEDICARE, BC, SELFPAY ==
[2025-05-04 20:18] LABS: HCT 42.5 % (40.0-50.0); HGB 14.0 g/dL (13.5-17.5); MCH 30.9 pg (27.0-33.0); MCHC 32.9 % (32.0-36.0); MCV 94 fL (80-95); MPV 11.8 fL (8.0-11.0); Platelet Count 173 10^3/uL (130-400); RBC 4.53 10^6/uL (4.36-5.78); RDW 12.9 % (11.8-14.1); RDW-SD 44.9 fL; WBC 7.57 10^3/uL (4.4-10.8)
[2025-05-04 20:45] LABS: ALT 29 U/L (16-63); AST 23 U/L (15-37); Albumin 3.9 g/dL (3.4-5.0); Alkaline Phosphatase 109 U/L (46-116); Anion Gap 11.0 mmol/L (3-11); BUN 16 mg/dL (7-18); Bilirubin, Total 0.5 mg/dL (0.2-1.0); CO2 25.0 mmol/L (21.0-32.0); Calcium 9.1 mg/dL (8.5-10.1); Chloride 102 mmol/L (98-107); Estimated GFR 58.01 (mL/min/1.73m2); Glucose 211 mg/dL (74-106); Potassium 4.3 mmol/L (3.5-5.1); Sodium 138 mmol/L (136-145); Total Protein 7.0 g/dL (6.4-8.2)
[2025-05-04 21:01] LABS: COMMENT (LAB VIEW ONLY) 97.35 mg/dL; Microalb ug/mg Crea 12.6 ug/mg Cr
[2025-05-05 14:47] LABS: Hemoglobin A1C 6.0 % (<5.7)
== END 2025-05-04 14:57 | disposition home or self-care (01) ==
LOC: NCHCN 14:56
PROVIDERS: PCP Nurse Practitioner Family; Visit Provider Nurse Practitioner Family
DX: Z00.00 Encounter for general adult medical examination without abnormal findings (principal)
CPT/HCPCS: 80053; 85027; 82043; 82570; 83036

== ENCOUNTER → 2025-07-27 13:31 | Outpatient (BNVA) | payer MEDICARE, BC, SELFPAY | PROVIDERS: PCP Nurse Practitioner Family; Referring Provider Nurse Practitioner Family; Visit Provider Urology | DX: Z87.440 Personal history of urinary (tract) infections (principal); R33.9 Retention of urine, unspecified; N40.1 Benign prostatic hyperplasia with lower urinary tract symptoms; N13.8 Other obstructive and reflux uropathy | CPT/HCPCS: 76775; 81002 ==

== ENCOUNTER 2025-07-27 14:43 | Outpatient (REF) | payer MEDICARE, BC, SELFPAY | END 2025-07-27 14:44 | disposition home or self-care (01) | LOC: LBN 14:43 | PROVIDERS: PCP Nurse Practitioner Family; Visit Provider Urology | DX: N13.8 Other obstructive and reflux uropathy (principal); N40.1 Benign prostatic hyperplasia with lower urinary tract symptoms | CPT/HCPCS: 87077; 87086; 87186 ==

== ENCOUNTER → 2025-08-02 13:06 | Outpatient (BNVA) | payer MEDICARE, BC, SELFPAY | PROVIDERS: PCP Nurse Practitioner Family; Referring Provider Nurse Practitioner Family; Visit Provider Podiatrist | DX: L60.3 Nail dystrophy (principal); B35.1 Tinea unguium; I70.203 Unspecified atherosclerosis of native arteries of extremities, bilateral legs; E11.9 Type 2 diabetes mellitus without complications; L84 Corns and callosities; M79.675 Pain in left toe(s); M79.674 Pain in right toe(s); R09.89 Other specified symptoms and signs involving the circulatory and respiratory systems; L65.9 Nonscarring hair loss, unspecified; R20.8 Other disturbances of skin sensation; R60.0 Localized edema; R23.4 Changes in skin texture; L60.2 Onychogryphosis; L60.8 Other nail disorders | CPT/HCPCS: 11055; 11721 ==